=== PATIENT | male | born 1930 | race Caucasian/White ===

== ENCOUNTER 2018-08-25 15:34 | Emergency (ER) | payer MEDICARE, BC, OTHER ==
[~2018-08-25] VITALS: Ht 175.3 cm; Wt 81.8 kg
[2018-08-25 15:43] VITALS: BP 194/92
[2018-08-25] MEDS ORDERED: HYDR118S10 PO (16:03)
[2018-08-25] MEDS ORDERED: ONDA8TAB6 PO (16:27)
[2018-08-25] MEDS ORDERED: ondansetron 4mg rapidly disintigrating tab PO ONE (16:30)
== END 2018-08-25 16:48 | disposition home or self-care (01) ==
LOC: ER 15:34
DX: K04.7 Periapical abscess without sinus (principal); G89.29 Other chronic pain; F17.200 Nicotine dependence, unspecified, uncomplicated; Z90.49 Acquired absence of other specified parts of digestive tract; Z79.899 Other long term (current) drug therapy
CPT/HCPCS: 99283

== ENCOUNTER 2018-09-02 19:30 | Emergency (ER) | payer MEDICARE, BC, OTHER ==
[~2018-09-02] VITALS: Ht 172.7 cm; Wt 64.3 kg
[~2018-09-02 19:30] MED LIST: HYDR118S10 PO; ONDA8TAB6 PO
[2018-09-02] MEDS ORDERED: ondansetron/PF 4mg/2ml inj IV ONE (20:00)
[2018-09-02] MEDS ORDERED: normal saline 1000ML IV soln IVB ONE (20:00)
[2018-09-02 20:28] LABS: BASOPHILS % (AUTO) 0.1 % (0-1); EOSINOPHILS # (AUTO) 0.1 X10'3 (0-0.9); EOSINOPHILS % (AUTO) 1.2 % (0-6); HEMOGLOBIN 12.8 g/dl (14.0-17.9); LYMPHOCYTES # (AUTO) 0.6 X10'3 (1.1-4.8); LYMPHOCYTES % (AUTO) 5.5 % (21-51); MEAN CORPUSCULAR HEMOGLOBIN 27.5 PG (27.0-31.0); MEAN CORPUSCULAR HGB CONC 32.8 % (33.0-36.5); MEAN CORPUSCULAR VOLUME 83.9 FL (78-98); MEAN PLATELET VOLUME 8.3 FL (7.4-10.4); MONOCYTES # (AUTO) 0.8 X10'3 (0-0.9); MONOCYTES % (AUTO) 6.7 % (2-12); NEUTROPHILS # (AUTO) 9.9 X10'3 (1.8-7.7); NEUTROPHILS % (AUTO) 86.5 % (42-75); PLATELET COUNT 256 X10'3 (140-440); RED BLOOD COUNT 4.65 X10'6 (4.70-6.10); RED CELL DISTRIBUTION WIDTH 15.2 % (11.5-14.5); WHITE BLOOD COUNT 11.4 X10'3 (4.5-11.0)
[2018-09-02 20:30] LABS: ALANINE AMINOTRANSFERASE 21 U/L (12-78); ALBUMIN/GLOBULIN RATIO 0.4 (1.1-1.5); ALKALINE PHOSPHATASE 72 IU/L (46-116); ANION GAP 10 (8-16); ASPARTATE AMINO TRANSFERASE 26 U/L (10-37); BILIRUBIN,TOTAL 0.5 MG/DL (0.1-1.0); BLOOD UREA NITROGEN 25 MG/DL (7-18); BUN/CREATININE RATIO 21.9 (5.4-32.0); CALCIUM 9.2 MG/DL (8.5-10.1); CHLORIDE 98 MMOL/L (99-107); CREATININE 1.14 MG/DL (0.60-1.10); GLUCOSE 133 MG/DL (70-104); LIPASE 82 U/L (73-393); POTASSIUM 3.8 MMOL/L (3.5-5.1); SODIUM 136 MMOL/L (135-145); TOTAL CARBON DIOXIDE 28.3 MMOL/L (24-32); TOTAL PROTEIN 6.9 G/DL (6.4-8.2); eGFR 61 ML/MIN
[2018-09-02 21:05] LABS: CLARITY,URINE CLEAR (Clear); COLOR,URINE YELLOW (Yellow); GLUCOSE, URINE NEGATIVE (Neg); KETONES,URINE TRACE mg/dl (Neg); LEUKOCYTE ESTERASE ,URINE NEGATIVE (Neg); NITRITES, URINE NEGATIVE (Neg); OCCULT BLOOD,URINE NEGATIVE (Neg); PROTEIN,URINE NEGATIVE (Neg); UROBILINOGEN,URINE 0.2 E.U/dL (0.2-1.0)
[2018-09-02 21:06] LABS: UA COLLECTION TYPE FOLEY CATH
[2018-09-02] MEDS ORDERED: POLY17PO10 PO (21:17)
[2018-09-02] MEDS ORDERED: methylnaltrexone br 12mg/0.6ml inj***SubQ only SQ ONE (21:20)
[2018-09-02] MEDS ORDERED: hyDRALAzine 10mg tablet PO SCH (22:25)
[2018-09-02 22:43] VITALS: BP 198/93
== END 2018-09-02 22:45 | disposition home or self-care (01) ==
LOC: ER 19:30
DX: K59.00 Constipation, unspecified (principal); G89.29 Other chronic pain; Z90.49 Acquired absence of other specified parts of digestive tract; Z79.899 Other long term (current) drug therapy
CPT/HCPCS: 36415; 74176; 80053; 81003; 83690; 85025; 96361; 96372; 96374; 99285; J2405; J7030

== ENCOUNTER 2019-07-26 12:08 | Emergency (ER) | payer MEDICARE, BC ==
[~2019-07-26] VITALS: Ht 172.7 cm; Wt 63.6 kg
--- NOTE | 2019-07-26 12:39 | NUR ---
MELISSA SAW DR KRUEGER NEUROLOGISR ON 06/18/[address] KRUEGER PRESCRIBED FLEXERIL
[2019-07-26] MEDS ORDERED: normal saline 1000ml 1,000 ML IV ONE (12:40)
[2019-07-26 13:12] LABS: ALANINE AMINOTRANSFERASE 7 U/L (12-78); ALBUMIN 2.7 G/DL (3.4-5.0); ALBUMIN/GLOBULIN RATIO 1.1 (1.1-1.5); ALKALINE PHOSPHATASE 63 IU/L (46-116); ANION GAP 7 (8-16); ASPARTATE AMINO TRANSFERASE 17 U/L (10-37); BILIRUBIN,TOTAL 0.7 MG/DL (0.1-1.0); BLOOD UREA NITROGEN 18 MG/DL (7-18); BUN/CREATININE RATIO 23.4 (5.4-32.0); CALCIUM 6.9 MG/DL (8.5-10.1); CHLORIDE 110 MMOL/L (99-107); CREATININE 0.77 MG/DL (0.60-1.10); GLUCOSE 98 MG/DL (70-104); MAGNESIUM 1.5 MG/DL (1.5-2.4); POTASSIUM 3.3 MMOL/L (3.5-5.1); SODIUM 141 MMOL/L (135-145); TOTAL CARBON DIOXIDE 24.4 MMOL/L (24-32); TOTAL PROTEIN 5.2 G/DL (6.4-8.2); eGFR > 90 ML/MIN
[2019-07-26 13:29] LABS: BASOPHILS % (AUTO) 0.4 % (0-1); EOSINOPHILS % (AUTO) 0.5 % (0-6); HEMATOCRIT 31.7 % (42.0-52.0); HEMOGLOBIN 10.7 g/dl (14.0-17.9); LYMPHOCYTES # (AUTO) 0.5 X10'3 (1.1-4.8); LYMPHOCYTES % (AUTO) 8.8 % (21-51); MEAN CORPUSCULAR HEMOGLOBIN 30.5 PG (27.0-31.0); MEAN CORPUSCULAR HGB CONC 33.9 g/dL (33.0-36.5); MEAN CORPUSCULAR VOLUME 89.9 FL (78-98); MEAN PLATELET VOLUME 8.9 FL (7.4-10.4); MONOCYTES # (AUTO) 0.4 X10'3 (0-0.9); MONOCYTES % (AUTO) 7.3 % (2-12); NEUTROPHILS # (AUTO) 4.4 X10'3 (1.8-7.7); PLATELET COUNT 112 X10'3 (140-440); RED BLOOD COUNT 3.52 X10'6 (4.70-6.10); RED CELL DISTRIBUTION WIDTH 14.5 % (11.5-14.5); WHITE BLOOD COUNT 5.3 X10'3 (4.5-11.0)
[2019-07-26 13:34] LABS: PHOSPHORUS 2.9 MG/DL (2.3-4.5)
[2019-07-26] MEDS ORDERED: CYCL-1 PO (13:55)
[2019-07-26] MEDS ORDERED: potassium Cl 20 mEq SR tablet PO ONE (13:55)
--- NOTE | 2019-07-26 14:39 | NUR ---
PER DR NOE: MAY BE DISCHARGED WOTHOUT OBTAINING URINE, AWARE MAGNESIUM IS 1.5, NO MAGNESIUM ORDERED. OK FOR DISCHARGE
[2019-07-26 14:40] VITALS: BP 173/103
== END 2019-07-26 14:46 | disposition home or self-care (01) ==
LOC: ER 12:09
DX: R25.2 Cramp and spasm (principal); G89.29 Other chronic pain; Z90.49 Acquired absence of other specified parts of digestive tract; Z98.890 Other specified postprocedural states
CPT/HCPCS: 36415; 80053; 83735; 84100; 84484; 85025; 99284; J7030

== ENCOUNTER 2019-08-01 11:13 | Emergency (ER) | payer MEDICARE, BC, OTHER ==
[~2019-08-01] VITALS: Ht 185.4 cm; Wt 75.0 kg
[~2019-08-01 11:13] MED LIST changes: +CYCL-1 PO
[2019-08-01] MEDS ORDERED: normal saline 1000ML IV soln IVB ONE (12:40)
[2019-08-01 13:00] LABS: BASOPHILS % (AUTO) 0.6 % (0-1); EOSINOPHILS % (AUTO) 0.7 % (0-6); HEMATOCRIT 35.3 % (42.0-52.0); LYMPHOCYTES # (AUTO) 0.6 X10'3 (1.1-4.8); MEAN CORPUSCULAR HEMOGLOBIN 30.7 PG (27.0-31.0); MEAN CORPUSCULAR HGB CONC 33.9 g/dL (33.0-36.5); MEAN CORPUSCULAR VOLUME 90.6 FL (78-98); MEAN PLATELET VOLUME 8.8 FL (7.4-10.4); MONOCYTES # (AUTO) 0.5 X10'3 (0-0.9); MONOCYTES % (AUTO) 8.7 % (2-12); NEUTROPHILS # (AUTO) 4.8 X10'3 (1.8-7.7); PLATELET COUNT 132 X10'3 (140-440); RED CELL DISTRIBUTION WIDTH 14.2 % (11.5-14.5)
[2019-08-01 13:14] LABS: ALANINE AMINOTRANSFERASE 13 U/L (12-78); ALBUMIN 3.3 G/DL (3.4-5.0); ALBUMIN/GLOBULIN RATIO 1.1 (1.1-1.5); ALKALINE PHOSPHATASE 136 IU/L (46-116); ANION GAP 5 (8-16); ASPARTATE AMINO TRANSFERASE 45 U/L (10-37); BILIRUBIN,TOTAL 1.1 MG/DL (0.1-1.0); BLOOD UREA NITROGEN 17 MG/DL (7-18); BUN/CREATININE RATIO 17.7 (5.4-32.0); CALCIUM 8.5 MG/DL (8.5-10.1); CHLORIDE 104 MMOL/L (99-107); CREATININE 0.96 MG/DL (0.60-1.10); GLUCOSE 110 MG/DL (70-104); POTASSIUM 3.8 MMOL/L (3.5-5.1); SODIUM 137 MMOL/L (135-145); TOTAL CARBON DIOXIDE 27.6 MMOL/L (24-32); TOTAL PROTEIN 6.3 G/DL (6.4-8.2); eGFR 74 ML/MIN
[2019-08-01 13:22] LABS: MAGNESIUM 1.8 MG/DL (1.5-2.4)
[2019-08-01 13:51] LABS: CLARITY,URINE CLEAR (Clear); COLOR,URINE YELLOW (Yellow); GLUCOSE, URINE NEGATIVE (Neg); KETONES,URINE NEGATIVE (Neg); LEUKOCYTE ESTERASE ,URINE NEGATIVE (Neg); NITRITES, URINE NEGATIVE (Neg); OCCULT BLOOD,URINE SMALL (Neg); PH,URINE 6.5 (4.8-8.0); PROTEIN,URINE NEGATIVE (Neg)
[2019-08-01 14:08] LABS: UA COLLECTION TYPE CLN CATCH MIDSTREAM
[2019-08-01 14:11] LABS: BACTERIA,URINE NONE SEEN /HPF (Neg); MUCUS STRANDS NONE SEEN /LPF (Neg); SQUAMOUS EPITHELIAL CELL,UR FEW /LPF (FEW); WBC,URINE 0-4 /HPF (0-4)
[2019-08-01] MEDS ORDERED: TIZA4CAP PO (14:30)
[2019-08-01 14:49] VITALS: BP 156/91
== END 2019-08-01 14:53 | disposition home or self-care (01) ==
LOC: ER 11:13
DX: R44.3 Hallucinations, unspecified (principal); E78.00 Pure hypercholesterolemia, unspecified; K21.9 Gastro-esophageal reflux disease without esophagitis; G89.29 Other chronic pain; F32.9 Major depressive disorder, single episode, unspecified; G20 Parkinson's disease; Z90.49 Acquired absence of other specified parts of digestive tract; Z98.890 Other specified postprocedural states; Z88.1 Allergy status to other antibiotic agents; Z88.5 Allergy status to narcotic agent; W19.XXXA Unspecified fall, initial encounter; Y93.89 Activity, other specified; Y92.89 Other specified places as the place of occurrence of the external cause; Y99.9 Unspecified external cause status
CPT/HCPCS: 36415; 71045; 80053; 81001; 83735; 84443; 84484; 85025; 85610; 93005; 99284; J7040

== ENCOUNTER 2019-08-01 22:29 | Emergency (ER) | payer MEDICARE, BC ==
[~2019-08-01] VITALS: Ht 177.8 cm; Wt 75.0 kg
[~2019-08-01 22:29] MED LIST changes: +TIZA4CAP PO
--- NOTE | 2019-08-01 23:39 | NUR ---
[facility] . ANSWERING MACHINE ONLY. CONTACTED CATHERINE RUSSO, RESPONSIBLE CONSTITUTION PARTY, FOR TRANSPORTATION ARRANGMENTS BACK TO A [facility] FOR DISCHARGE. STASTED SHE WILL COME TO [facility] TO TRANSPORT PT TO A [facility] HERSELF. " SHE CANT AFFORD LACEY CARGO " EXPECTED TA IS MIDNIGHT
[2019-08-02 00:41] VITALS: BP 146/59
[2019-08-03] MEDS ORDERED: LORA0.5T PO (00:12)
== END 2019-08-02 00:49 | disposition home or self-care (01) ==
LOC: ER 22:30
DX: M25.552 Pain in left hip (principal); G20 Parkinson's disease; E78.00 Pure hypercholesterolemia, unspecified; K21.9 Gastro-esophageal reflux disease without esophagitis; E07.9 Disorder of thyroid, unspecified; F32.9 Major depressive disorder, single episode, unspecified; G89.29 Other chronic pain; Z90.49 Acquired absence of other specified parts of digestive tract; Z88.1 Allergy status to other antibiotic agents; Z88.5 Allergy status to narcotic agent; Z88.6 Allergy status to analgesic agent; Z79.899 Other long term (current) drug therapy; W18.39XA Other fall on same level, initial encounter; Y93.89 Activity, other specified; Y92.89 Other specified places as the place of occurrence of the external cause; Y99.8 Other external cause status
CPT/HCPCS: 73502; 99284

== ENCOUNTER 2019-08-02 23:58 | Emergency (ER) | payer MEDICARE, BC ==
[~2019-08-02] VITALS: Ht 182.9 cm; Wt 58.2 kg
[2019-08-03] MEDS ORDERED: LORA0.5T PO (00:12)
[2019-08-03 01:10] VITALS: BP 158/83
== END 2019-08-03 01:00 | disposition home or self-care (01) ==
LOC: ER 23:59
DX: R45.1 Restlessness and agitation (principal); G20 Parkinson's disease; F02.80 Dementia in other diseases classified elsewhere, unspecified severity, without behavioral disturbance, psychotic disturbance, mood disturbance, and anxiety; E78.00 Pure hypercholesterolemia, unspecified; K21.9 Gastro-esophageal reflux disease without esophagitis; E07.9 Disorder of thyroid, unspecified; G89.29 Other chronic pain; F32.9 Major depressive disorder, single episode, unspecified; Z90.49 Acquired absence of other specified parts of digestive tract; Z98.890 Other specified postprocedural states; Z88.1 Allergy status to other antibiotic agents; Z88.5 Allergy status to narcotic agent; Z88.6 Allergy status to analgesic agent; Z79.899 Other long term (current) drug therapy
CPT/HCPCS: 99284